=== PATIENT | female | born 1985 | race Hispanic/Latino ===

== ENCOUNTER 2017-01-28 22:57 | Emergency (ER) | payer SELFPAY ==
[2017-01-28 23:06] VITALS: BP 111/72; PULSE 79; RESP 16; TEMP 96.8; O2SAT 98
--- NOTE | 2017-01-28 23:27 | ED PDOC ---
HPI: Head Injury Time Seen by Provider: 01/28/17 23:09 Chief Complaint (Nursing): Abnormal Skin Integrity Chief Complaint (Provider): i fell and hit my head History Per: Patient History/Exam Limitations: no limitations Injury Occurred (Timing): Hours Ago: (1) Patient States: Fell Striking Head Severity: Moderate Loss Of Consciousness: Unsure Additional Complaint(s): 31yo female arrives with admits to drinking some wine tonight, went home and heard her fall in the bathroom, noticed back of head was bleeding, she appeared "dazed", denies current headache, weakness, numbness or change in vision. UTD tetanus (recd on [place] citizenship from [place] within last 2 yrs) Past Medical History Reviewed: Historical Data, Nursing Documentation, Vital Signs Vital Signs: Last Vital Signs Temp 96.8 F L 01/28/17 23:03 Pulse 79 01/28/17 23:03 Resp 16 01/28/17 23:03 BP 111/72 01/28/17 23:03 Pulse Ox 98 01/28/17 23:03 - Medical History PMH: No Chronic Diseases - Surgical History Surgical History: No Surg Hx - Family History Family History: States: Unknown Family Hx - Living Arrangements Living Arrangements: With Family - Social History Current smoker - smoking cessation education provided: No Alcohol: Social - Home Medications Home Medications: Ambulatory Orders Medication Instructions Recorded Clindamycin [Cleocin] 1 tab PO ONCE #1 cap 12/28/15 - Allergies Allergies/Adverse Reactions: Allergies Allergy/AdvReac Type Severity Reaction Status Date / Time aspirin Allergy SWELLING Verified 12/28/15 12:45 Penicillins Allergy SWELLING Verified 12/28/15 12:45 Review of Systems Constitutional: Negative for: Fever ENT: Negative for: Ear Pain, Nose Pain Cardiovascular: Negative for: Chest Pain, Palpitations Respiratory: Negative for: Cough, Shortness of Breath Genitourinary Female: Negative for: Dysuria Musculoskeletal: Negative for: Neck Pain, Arm Pain, Back Pain, Leg Pain Skin: Negative for: Rash, Lesions Neurological: Negative for: Weakness, Numbness, Headache, Dizziness Physical Exam - Reviewed Nursing Documentation Reviewed: Yes Vital Signs Reviewed: Yes - Physical Exam Appears: Positive for: Non-toxic (+AOB but speech intact), No Acute Distress Head Exam: Positive for: NORMAL INSPECTION, NORMOCEPHALIC. Negative for: ATRAUMATIC (+3cm laceration linear occipital scalp) Skin: Positive for: Normal Color, Warm Eye Exam: Positive for: EOMI, Normal appearance, PERRL ENT: Positive for: Normal ENT Inspection, TM Is/Are (no hemotympanum) Neck: Positive for: Painless ROM. Negative for: Decreased ROM, Pain On Movement Of Neck Cardiovascular/Chest: Positive for: Regular Rate, Rhythm Respiratory: Positive for: CNT, Normal Breath Sounds Gastrointestinal/Abdominal: Positive for: Bowel Sounds, Soft. Negative for: Tenderness Back: Positive for: Normal Inspection Extremity: Positive for: Normal ROM Neurologic/Psych: Positive for: Alert, Oriented, Other (strength 5/5 all ext). Negative for: Motor/Sensory Deficits - ECG O2 Sat by Pulse Oximetry: 98 Medical Decision Making Medical Decision Making: workup initiated for head trauma w scalp laceration CTs performed r/o ICH or Cspinal fracture TECHNIQUE: Axial computed tomography images of the cervical spine without intravenous contrast. All CT scans at this facility use one or more dose reduction techniques, viz.: automated exposure control; ma/kV adjustment per patient size (including targeted exams where dose is matched to indication; i.e. head); or iterative reconstruction technique. Coronal and sagittal reformatted images were created and reviewed. COMPARISON: No relevant prior studies available. FINDINGS: Vertebrae: Unremarkable. No acute fracture. Discs/spinal canal/neural foramina: No acute findings. No spinal canal stenosis. Soft tissues: Unremarkable. Lung apices: Unremarkable as visualized. IMPRESSION: Normal cervical spine CT. Thank you for allowing us to participate in the care of your patient. Dictated and Authenticated by: Jose Juan Contreras MD 01/29/2017 12:04 AM Eastern Time ([place] & [place]) TECHNIQUE: Axial computed tomography images of the head/brain without intravenous contrast. All CT scans at this facility use one or more dose reduction techniques, viz.: automated exposure control; ma/kV adjustment per patient size (including targeted exams where dose is matched to indication; i.e. head); or iterative reconstruction technique. Coronal and sagittal reformatted images were created and reviewed. COMPARISON: No relevant prior studies available. FINDINGS: Brain: Unremarkable. No hemorrhage. No significant white matter disease. No edema. Ventricles: Unremarkable. No ventriculomegaly. Bones/joints: Unremarkable. No acute fracture. Soft tissues: Unremarkable. Sinuses: Unremarkable as visualized. No acute sinusitis. Mastoid air cells: Unremarkable as visualized. No mastoid effusion. IMPRESSION: Normal head/brain CT. Thank you for allowing us to participate in the care of your patient. Dictated and Authenticated by: Jose Juan Contreras MD 01/29/2017 12:01 AM Eastern Time ([place] & [place]) procedure note laceration repair verbal consent obtained, present 3cm laceration linear simple to posterior scalp cleansed w H2O2 and sterile saline 250ml under pressure lidocaine 1% 5ml injected 4 celia applied for wound margin approximation no bleeding thereafter bacitracin applied and patient informed of wound care celia out 6-7 days. 12am awake with steady gait, to accompany home for safety. Results and followup instructions were discussed. Disposition - Clinical Impression Clinical Impression: Head injury, Scalp laceration - Patient ED Disposition Is Patient to be Admitted: No Counseled Patient/Family Regarding: Studies Performed, Diagnosis, Need For Followup - Disposition Referrals: Suleiman Khoury MD [Staff Provider] - Disposition: Routine/Home Disposition Time: 00:30 Condition: STABLE Additional Instructions: Wound care as discussed- do not rub wound, keep clean and dry x2 days then warm soapy water 2x daily. Celia out in 6-7 days. Return earlier if swelling, pain, redness, discharge or fever develop. Instructions: Head Injury (ED), Staple Care (ED) Forms: [facility] (Danish)
[2017-01-28] MEDS ORDERED: Hydrogen Peroxide 3% Soln (480ml) TP ONE (23:56)
[2017-01-29] MEDS ORDERED: Lidocaine 1% Inj (20ml) IJ ONE (00:06)
--- NOTE | 2017-01-29 09:08 | CT ---
PROCEDURE: CT HEAD WITHOUT CONTRAST. HISTORY: fall posterior head injury COMPARISON: None. TECHNIQUE: Axial computed tomography images were obtained through the head/brain without intravenous contrast. Coronal and sagittal reconstructed images. Radiation dose: Total exam DLP = 1033.09 mGy-cm. This CT exam was performed using one or more of the following dose reduction techniques: Automated exposure control, adjustment of the mA and/or kV according to patient size, and/or use of iterative reconstruction technique. FINDINGS: HEMORRHAGE: No intracranial hemorrhage. BRAIN: No mass effect or edema. No atrophy or chronic microvascular ischemic changes. VENTRICLES: Unremarkable. No hydrocephalus. CALVARIUM: Unremarkable. PARANASAL SINUSES: Unremarkable as visualized. No significant inflammatory changes. MASTOID AIR CELLS: Unremarkable as visualized. No inflammatory changes. OTHER FINDINGS: Scalp contusion posteriorly without evidence of calvarial or underlying left occipital abnormality IMPRESSION: No acute intracranial abnormalities. No significant findings to account for the clinical presentation. Concordant results (preliminary interpretation) provided by [facility]. Procedure Completed: 23:35 Preliminary ([facility]) Report: Dictated and Authenticated: 00:01 Final Interpretation: 09:04 January 29, 2017. No
--- NOTE | 2017-01-29 09:45 | CT ---
PROCEDURE: CT Cervical Spine without contrast HISTORY: Recent traumatic event COMPARISON: None available. TECHNIQUE: Axial computed tomography images were obtained of the cervical spine without the use of intravenous contrast. Coronal and sagittal reformatted images were created and reviewed. Radiation dose: Total exam DLP = 317.53 mGy-cm. This CT exam was performed using one or more of the following dose reduction techniques: Automated exposure control, adjustment of the mA and/or kV according to patient size, and/or use of iterative reconstruction technique. FINDINGS: VERTEBRAE: No fracture. Normal alignment. No destructive bony lesion. DISCS/SPINAL CANAL/NEURAL FORAMINA: No significant central canal or neural foraminal stenosis. Discs heights are grossly preserved. PARASPINAL SOFT TISSUES: Unremarkable. OTHER FINDINGS: None. IMPRESSION: No significant or acute findings to account for/ related to the clinical presentation. Concordant results (preliminary interpretation) provided by [facility]. Procedure Completed: 23:34 Preliminary ([facility]) Report: Dictated and Authenticated: 12:04 Final Interpretation: 09:43 January 29, 2017.
== END 2017-01-29 01:07 | disposition home or self-care (01) ==
LOC: H.ER 22:57
DX: S09.90XA Unspecified injury of head, initial encounter (principal); S01.01XA Laceration without foreign body of scalp, initial encounter; W19.XXXA Unspecified fall, initial encounter; Y92.002 Bathroom of unspecified non-institutional (private) residence as the place of occurrence of the external cause; Z88.0 Allergy status to penicillin